=== PATIENT | female | born 1940 | race Caucasian/White ===

== ENCOUNTER → 2016-10-13 | Outpatient (CLI) | payer MEDICARE, BC ==
[2014-08-29 06:41] VITALS: BP 110/50
[~2016-10-13] MED LIST: CETIRIZINE10 MG PO; CHILDREN'S ASPI81 M1 PO; CYMBALTA60 M1 PO; LAMISIL TP; LEVOTHROID0.1 MG; LISINOPRIL1 POW; LISINOPRIL10 MG; LISINOPRIL10 MG PO; NEURONTIN300 MG PO; NEXIUM2.5 MG/Pac; NEXIUM40 MG; NORCO 325 MG-51 TAB PO; PRAVASTATIN20 MG PO; TOPROL XL 25MG25 MG PO; ZESTRIL 5MG5 MG PO
== END ==
LOC: LAB 09:27
DX: E78.2 Mixed hyperlipidemia (principal)

== ENCOUNTER → 2017-03-22 | Outpatient (CLI) | payer MEDICARE, BC ==
[2014-08-29 06:41] VITALS: BP 110/50
[2017-03-22 09:28] LABS: ALBUMIN 3.6 g/dL (3.5-5.0); BUN/CREATININE RATIO 16.7 (6.0-26.0); TOTAL BILIRUBIN 0.6 mg/dL (0.2-1.3); TOTAL PROTEIN 6.9 g/dL (6.3-8.2)
== END ==
LOC: LAB 09:03
PROVIDERS: Family Medicine
DX: E78.2 Mixed hyperlipidemia (principal); E03.8 Other specified hypothyroidism

== ENCOUNTER → 2017-09-23 | Outpatient (CLI) | payer MEDICARE, BC ==
[2014-08-29 06:41] VITALS: BP 110/50
[2017-09-23 12:37] LABS: HEMATOCRIT 42.6 % (37.0-47.0); HEMOGLOBIN 13.7 g/dL (12.5-16.0); MEAN PLATELET VOLUME 9.2 fl (7.4-10.4); RED BLOOD COUNT 4.52 M/mm3 (4.10-5.30); RED CELL DISTRIBUTION WIDTH 13.9 % (11.5-14.5); WHITE BLOOD COUNT 6.6 K/mm3 (4.8-10.8)
[2017-09-23 14:06] LABS: PARTIAL THROMBOPLASTIN TIME 25.3 SECONDS (21.0-32.0); PROTHROMBIN TIME 9.8 SECONDS (9.0-12.0)
== END ==
LOC: LAB 11:55
PROVIDERS: Family Medicine
DX: M19.071 Primary osteoarthritis, right ankle and foot (principal); M79.89 Other specified soft tissue disorders; R23.3 Spontaneous ecchymoses; G14 Postpolio syndrome

== ENCOUNTER → 2017-10-06 | Outpatient (CLI) | payer MEDICARE, BC ==
[2014-08-29 06:41] VITALS: BP 110/50
== END ==
LOC: RAD 08:27
DX: M21.6X1 Other acquired deformities of right foot (principal); M21.961 Unspecified acquired deformity of right lower leg; M89.8X7 Other specified disorders of bone, ankle and foot

== ENCOUNTER → 2018-03-02 | Outpatient (CLI) | payer MEDICARE, BC ==
[2014-08-29 06:41] VITALS: BP 110/50
[2018-03-02 12:06] LABS: CALCIUM 9.3 mg/dL (8.4-10.2); POTASSIUM 4.1 mmol/L (3.6-5.0); TOTAL BILIRUBIN 0.6 mg/dL (0.2-1.3); TOTAL PROTEIN 6.8 g/dL (6.3-8.2)
== END ==
LOC: LAB 11:31
PROVIDERS: Family Medicine
DX: E03.9 Hypothyroidism, unspecified (principal); I10 Essential (primary) hypertension; E78.2 Mixed hyperlipidemia

== ENCOUNTER → 2018-03-09 | Outpatient (CLI) | payer MEDICARE, BC ==
[2014-08-29 06:41] VITALS: BP 110/50
== END ==
LOC: LAB 14:07
DX: N39.0 Urinary tract infection, site not specified (principal); R30.0 Dysuria

== ENCOUNTER → 2018-04-27 | Outpatient (CLI) | payer MEDICARE, BC ==
[~2018-04-27] VITALS: Ht 160 cm; Wt 104.7 kg
[~2018-04-27] MED LIST changes: +ALBUTEROL2.5 MG/3 M IH; +GABAPENTIN TAB600 MG PO; +OMEPRAZOLE40 MG PO; +PRAVACHOL 40MG40 MG PO; +SINGULAIR PO
[2018-04-27 11:27] LABS: HEMATOCRIT 39.4 % (37.0-47.0); HEMOGLOBIN 12.5 g/dL (12.5-16.0); MEAN PLATELET VOLUME 9.8 fl (7.4-10.4); RED BLOOD COUNT 4.08 M/mm3 (4.10-5.30); RED CELL DISTRIBUTION WIDTH 14.4 % (11.5-14.5); WHITE BLOOD COUNT 8.3 K/mm3 (4.8-10.8)
[2018-04-27 11:28] VITALS: BP 126/69
[2018-04-27 11:41] LABS: CALCIUM 8.8 mg/dL (8.4-10.2); POTASSIUM 4.6 mmol/L (3.6-5.0)
[2018-04-27 12:00] VITALS: BP 134/78
[2018-04-27 12:15] VITALS: BP 154/73; BP 156/71
[2018-04-27 12:30] VITALS: BP 149/71
== END ==
LOC: AMSURD 11:01
PROVIDERS: Family Medicine
DX: J84.9 Interstitial pulmonary disease, unspecified (principal); R00.1 Bradycardia, unspecified; R06.00 Dyspnea, unspecified; J06.9 Acute upper respiratory infection, unspecified; R05 Cough; I10 Essential (primary) hypertension; E87.8 Other disorders of electrolyte and fluid balance, not elsewhere classified; Z98.890 Other specified postprocedural states; Z95.1 Presence of aortocoronary bypass graft

== ENCOUNTER → 2018-09-12 | Outpatient (CLI) | payer MEDICARE, BC ==
[2018-04-27 12:30] VITALS: BP 149/71
== END ==
LOC: RAD 09:57
DX: M19.019 Primary osteoarthritis, unspecified shoulder (principal); M54.2 Cervicalgia; G89.29 Other chronic pain; M25.562 Pain in left knee

== ENCOUNTER → 2019-05-13 | Outpatient (CLI) | payer MEDICARE, BC ==
[2018-04-27 12:30] VITALS: BP 149/71
== END ==
LOC: LAB 16:40
DX: N39.0 Urinary tract infection, site not specified (principal)

== ENCOUNTER → 2019-06-27 | Outpatient (CLI) | payer MEDICARE, BC ==
[2018-04-27 12:30] VITALS: BP 149/71
[2019-06-27 09:38] LABS: POTASSIUM 4.3 mmol/L (3.5-5.1)
[2019-06-27 09:39] LABS: CALCIUM 8.9 mg/dL (8.3-10.5)
[2019-06-27 09:42] LABS: TOTAL BILIRUBIN 0.4 mg/dL (0.2-1.2)
== END ==
LOC: LAB 09:00
PROVIDERS: Family Medicine
DX: I10 Essential (primary) hypertension (principal); E03.9 Hypothyroidism, unspecified; E78.2 Mixed hyperlipidemia

== ENCOUNTER → 2019-11-08 | Outpatient (CLI) | payer MEDICARE, BC ==
[2018-04-27 12:30] VITALS: BP 149/71
== END ==
LOC: RAD 08:30
DX: M19.012 Primary osteoarthritis, left shoulder (principal)

== ENCOUNTER → 2020-07-25 | Outpatient (CLI) | payer MEDICARE, BC ==
[2018-04-27 12:30] VITALS: BP 149/71
[2020-07-25 10:53] LABS: POTASSIUM 4.5 mmol/L (3.5-5.1)
[2020-07-25 10:54] LABS: ALBUMIN 3.9 g/dL (3.4-4.8)
[2020-07-25 10:55] LABS: CALCIUM 9.3 mg/dL (8.3-10.5)
[2020-07-25 10:58] LABS: TOTAL BILIRUBIN 0.4 mg/dL (0.2-1.2)
== END ==
LOC: LAB 10:08
PROVIDERS: Family Medicine
DX: I10 Essential (primary) hypertension (principal); E03.9 Hypothyroidism, unspecified; E78.2 Mixed hyperlipidemia; M85.80 Other specified disorders of bone density and structure, unspecified site

== ENCOUNTER → 2020-07-25 | Outpatient (CLI) | payer MEDICARE, BC ==
[2018-04-27 12:30] VITALS: BP 149/71
== END ==
LOC: MAMMO 10:00
DX: Z12.31 Encounter for screening mammogram for malignant neoplasm of breast (principal); Z95.0 Presence of cardiac pacemaker

== ENCOUNTER → 2020-07-30 | Outpatient (CLI) | payer MEDICARE, BC ==
[2018-04-27 12:30] VITALS: BP 149/71
== END ==
LOC: LAB 09:12
DX: E03.9 Hypothyroidism, unspecified (principal); M85.80 Other specified disorders of bone density and structure, unspecified site; I10 Essential (primary) hypertension; E78.2 Mixed hyperlipidemia

== ENCOUNTER → 2020-08-28 | Outpatient (CLI) | payer MEDICARE, BC ==
[2018-04-27 12:30] VITALS: BP 149/71
== END ==
LOC: RAD 08:30
DX: M19.012 Primary osteoarthritis, left shoulder (principal)

== ENCOUNTER → 2020-12-23 | Outpatient (CLI) | payer MEDICARE, BC | LOC: RAD 14:54 | DX: J98.01 Acute bronchospasm (principal); J30.9 Allergic rhinitis, unspecified ==

== ENCOUNTER → 2021-07-28 | Outpatient (CLI) | payer MEDICARE, BC | LOC: LAB 12:27 | DX: N39.0 Urinary tract infection, site not specified (principal); L20.9 Atopic dermatitis, unspecified ==

== ENCOUNTER → 2021-08-18 | Outpatient (CLI) | payer MEDICARE, BC ==
[2021-08-18 10:29] LABS: ALBUMIN 3.8 g/dL (3.4-4.8)
[2021-08-18 10:30] LABS: CALCIUM 10.1 mg/dL (8.3-10.5)
[2021-08-18 10:33] LABS: TOTAL BILIRUBIN 0.5 mg/dL (0.2-1.2)
== END ==
LOC: LAB 09:14
PROVIDERS: Family Medicine
DX: E78.2 Mixed hyperlipidemia (principal); I10 Essential (primary) hypertension; E55.9 Vitamin D deficiency, unspecified; E03.9 Hypothyroidism, unspecified

== ENCOUNTER → 2021-08-20 | Outpatient (CLI) | payer MEDICARE, BC ==
[2021-08-20 09:39] LABS: POTASSIUM 5.1 mmol/L (3.5-5.1)
[2021-08-20 09:40] LABS: CALCIUM 10.2 mg/dL (8.3-10.5)
== END ==
LOC: LAB 09:00
PROVIDERS: Family Medicine
DX: Z00.00 Encounter for general adult medical examination without abnormal findings (principal); H04.123 Dry eye syndrome of bilateral lacrimal glands; E03.9 Hypothyroidism, unspecified; F41.9 Anxiety disorder, unspecified; I10 Essential (primary) hypertension; J98.01 Acute bronchospasm; G14 Postpolio syndrome; E87.5 Hyperkalemia; E55.9 Vitamin D deficiency, unspecified; L20.9 Atopic dermatitis, unspecified; R32 Unspecified urinary incontinence; Z95.2 Presence of prosthetic heart valve

== ENCOUNTER → 2021-09-24 | Outpatient (CLI) | payer MEDICARE, BC | LOC: LAB 10:23 | DX: R73.02 Impaired glucose tolerance (oral) (principal) ==

== ENCOUNTER → 2021-12-10 | Outpatient (CLI) | payer MEDICARE, BC ==
[2021-12-10 10:59] LABS: URINE APPEARANCE CLOUDY; URINE BILIRUBIN NEGATIVE (NEGATIVE); URINE BLOOD TRACE (NEGATIVE); URINE COLOR YELLOW; URINE GLUCOSE NEGATIVE (NEGATIVE); URINE KETONE NEGATIVE (NEGATIVE); URINE LEUKOCYTE ESTERASE 2+ (NEGATIVE); URINE NITRATE NEGATIVE (NEGATIVE); URINE PROTEIN(semi-quant) NEGATIVE (NEGATIVE); URINE UROBILINOGEN NORMAL (NORMAL); URINE WBC >50 /hpf (0-3)
== END ==
LOC: LAB 10:19
PROVIDERS: Family Medicine
DX: N39.0 Urinary tract infection, site not specified (principal)

== ENCOUNTER 2022-07-26 12:42 | Emergency (ER) | payer MEDICARE, BC ==
[~2022-07-26] VITALS: Ht 160 cm; Wt 102.3 kg
[2022-07-26 13:43] LABS: HEMATOCRIT 44.3 % (37.0-47.0); MEAN CELL VOLUME 95 fl (78-100); MEAN CORPUSCULAR HEMOGLOBIN 32 pg (27-31); MEAN CORPUSCULAR HGB CONC 34 g/dL (33-37); PLATELET COUNT 81 K/mm3 (130-400); RED BLOOD COUNT 4.65 M/mm3 (4.10-5.30); RED CELL DISTRIBUTION WIDTH 12.7 % (11.5-14.5); WHITE BLOOD COUNT 6.8 K/mm3 (4.8-10.8)
[2022-07-26 13:52] LABS: ALBUMIN 3.7 g/dL (3.4-4.8); POTASSIUM 4.6 mmol/L (3.5-5.1); SODIUM 137 mmol/L (136-145)
[2022-07-26 13:53] LABS: CALCIUM 9.6 mg/dL (8.3-10.5)
[2022-07-26 13:55] LABS: GLUCOSE 124 mg/dL (65-105); TOTAL PROTEIN 7.3 g/dL (6.2-8.1)
[2022-07-26 13:56] LABS: CARBON DIOXIDE 22 mmol/L (23-31); TOTAL BILIRUBIN 1.9 mg/dL (0.2-1.2)
[2022-07-26 14:00] LABS: AST-SGOT 215 U/L (5-34)
[2022-07-26 14:01] LABS: ALT/SGPT 119 U/L (0-55)
[2022-07-26 14:06] LABS: URINE APPEARANCE CLEAR; URINE COLOR YELLOW
[2022-07-26 14:07] LABS: PH-URINE 6.5 (5.0 - 8.0); URINE BILIRUBIN 8 (NEGATIVE); URINE BLOOD 50 ery/uL (NEGATIVE); URINE GLUCOSE NEGATIVE (NEGATIVE); URINE KETONE NEGATIVE (NEGATIVE); URINE LEUKOCYTE ESTERASE 2+ (NEGATIVE); URINE NITRATE POSITIVE (NEGATIVE); URINE PROTEIN(semi-quant) 1+ (NEGATIVE); URINE UROBILINOGEN 1 mg/dL (NORMAL); URINE WBC 16-30 /hpf (0-3)
[2022-07-26 14:12] LABS: NEUTROPHILS 70 % (42-75)
[2022-07-26 14:13] LABS: BAND 23 % (0-10); LYMPHOCYTE 3 % (20-51); MONOCYTE 3 % (3-10)
[2022-07-26 14:31] LABS: LIPASE > 1200 U/L (8-78)
[2022-07-26] MEDS ORDERED: DULOXETINE60 MG PO (15:19)
[2022-07-26] MEDS ORDERED: VITAMIN D3125 MC4 PO (15:19)
[2022-07-26] MEDS ORDERED: PRILOSEC 20MG20 MG PO (15:20)
[2022-07-26] MEDS ORDERED: SINGULAIR 110 MG/TAB PO (15:22)
[2022-07-26 17:58] VITALS: BP 122/68
[2022-07-28] MEDS ORDERED: CEFDINIR300 MG PO (15:43)
== END 2022-07-26 17:58 | disposition other institution (70) ==
LOC: ED 12:42
PROVIDERS: Family Medicine
DX: K85.90 Acute pancreatitis without necrosis or infection, unspecified (principal); G14 Postpolio syndrome; N39.0 Urinary tract infection, site not specified; R77.8 Other specified abnormalities of plasma proteins; E66.9 Obesity, unspecified; Z68.39 Body mass index [BMI] 39.0-39.9, adult; Z91.040 Latex allergy status
CPT/HCPCS: C9113; J0696; J7030; Q9967

== ENCOUNTER → 2022-08-07 | Outpatient (CLI) | payer MEDICARE, BC ==
[~2022-08-07] VITALS: Ht 160 cm; Wt 94.0 kg
[~2022-08-07] MED LIST changes: +CEFDINIR300 MG PO; +DULOXETINE60 MG PO; +PRILOSEC 20MG20 MG PO; +SINGULAIR 110 MG/TAB PO; +VITAMIN D3125 MC4 PO
[2022-08-07 11:55] LABS: URINE WBC 0 /hpf (0-3)
[2022-08-07 12:00] LABS: BASO # 0.03 K/mm3 (0.02-0.10); EOS # 0.08 K/mm3 (0.04-0.40); EOS % 1.3 % (1.0-5.0); HEMATOCRIT 44.6 % (37.0-47.0); HEMOGLOBIN 14.4 g/dL (12.5-16.0); LYMPH# 1.89 K/mm3 (1.50-4.00); MEAN CELL VOLUME 96 fl (78-100); MEAN CORPUSCULAR HEMOGLOBIN 31 pg (27-31); MEAN CORPUSCULAR HGB CONC 32 g/dL (33-37); MEAN PLATELET VOLUME 8.8 fl (7.4-10.4); MONO # 0.41 K/mm3 (0.20-0.80); NEU # 3.58 K/mm3 (1.40-6.50); PLATELET COUNT 203 K/mm3 (130-400); RED BLOOD COUNT 4.63 M/mm3 (4.10-5.30); RED CELL DISTRIBUTION WIDTH 12.5 % (11.5-14.5)
[2022-08-07 12:19] VITALS: BP 146/72
[2022-08-07 12:25] LABS: URINE APPEARANCE CLEAR; URINE BILIRUBIN NEGATIVE (NEGATIVE); URINE BLOOD NEGATIVE (NEGATIVE); URINE COLOR YELLOW; URINE GLUCOSE NEGATIVE (NEGATIVE); URINE KETONE NEGATIVE (NEGATIVE); URINE LEUKOCYTE ESTERASE NEGATIVE (NEGATIVE); URINE NITRATE NEGATIVE (NEGATIVE); URINE PROTEIN(semi-quant) NEGATIVE (NEGATIVE); URINE UROBILINOGEN NORMAL (NORMAL)
== END ==
LOC: LAB 11:47
PROVIDERS: Family Medicine
DX: D69.6 Thrombocytopenia, unspecified (principal); K82.9 Disease of gallbladder, unspecified; N39.0 Urinary tract infection, site not specified; Z95.2 Presence of prosthetic heart valve

== ENCOUNTER → 2023-03-10 | Outpatient (CLI) | payer MEDICARE, BC ==
[2023-03-10 12:27] LABS: POTASSIUM 4.3 mmol/L (3.5-5.1)
[2023-03-10 12:28] LABS: CALCIUM 9.8 mg/dL (8.3-10.5)
== END ==
LOC: LAB 11:57
PROVIDERS: Family Medicine
DX: E03.9 Hypothyroidism, unspecified (principal); I10 Essential (primary) hypertension; R73.03 Prediabetes; E78.2 Mixed hyperlipidemia; E55.9 Vitamin D deficiency, unspecified; K21.9 Gastro-esophageal reflux disease without esophagitis; M17.12 Unilateral primary osteoarthritis, left knee; G14 Postpolio syndrome; L20.9 Atopic dermatitis, unspecified

== ENCOUNTER → 2023-06-14 | Outpatient (CLI) | payer MEDICARE, BC ==
[2023-06-14 13:18] LABS: CALCIUM 10.1 mg/dL (8.3-10.5)
== END ==
LOC: LAB 12:51
PROVIDERS: Family Medicine
DX: E03.8 Other specified hypothyroidism (principal); I10 Essential (primary) hypertension; E78.2 Mixed hyperlipidemia; E55.9 Vitamin D deficiency, unspecified

== ENCOUNTER → 2023-10-14 | Outpatient (CLI) | payer MEDICARE, BC | LOC: LAB 12:30 | DX: E78.2 Mixed hyperlipidemia (principal) ==

== ENCOUNTER → 2024-06-19 | Outpatient (CLI) | payer MEDICARE, BC | LOC: LAB 10:19 | DX: E03.8 Other specified hypothyroidism (principal) ==

== ENCOUNTER → 2024-07-03 | Outpatient (CLI) | payer MEDICARE, BC ==
[~2024-07-03] MED LIST changes: +Iohexol 300 - 100 ML VIAL IV ONE; +NS 100 ML IV SCH
[2024-07-03 11:51] LABS: BASO # 0.02 K/mm3 (0.02-0.10); EOS # 0.11 K/mm3 (0.04-0.40); EOS % 2.2 % (1.0-5.0); HEMATOCRIT 44.7 % (37.0-47.0); HEMOGLOBIN 14.1 g/dL (12.5-16.0); LYMPH# 1.75 K/mm3 (1.50-4.00); MEAN CELL VOLUME 98 fl (78-100); MEAN CORPUSCULAR HEMOGLOBIN 31 pg (27-31); MEAN CORPUSCULAR HGB CONC 32 g/dL (33-37); MEAN PLATELET VOLUME 8.9 fl (7.4-10.4); MONO # 0.45 K/mm3 (0.20-0.80); NEU # 2.66 K/mm3 (1.40-6.50); PLATELET COUNT 134 K/mm3 (130-400); RED BLOOD COUNT 4.58 M/mm3 (4.10-5.30); RED CELL DISTRIBUTION WIDTH 12.7 % (11.5-14.5)
[2024-07-03 12:04] LABS: CALCIUM 10.2 mg/dL (8.3-10.5)
[2024-07-03 12:05] LABS: TOTAL PROTEIN 7.7 g/dL (6.2-8.1)
[2024-07-03 12:07] LABS: TOTAL BILIRUBIN 0.6 mg/dL (0.2-1.2)
== END ==
LOC: LAB 11:32
PROVIDERS: Family Medicine
DX: R10.11 Right upper quadrant pain (principal)
CPT/HCPCS: Q9967

== ENCOUNTER → 2024-07-04 | Outpatient (CLI) | payer MEDICARE, BC ==
[~2024-07-04] MED LIST changes: -Iohexol 300 - 100 ML VIAL IV ONE; -NS 100 ML IV SCH
[2024-07-04 10:09] LABS: ALBUMIN 3.8 g/dL (3.4-4.8)
[2024-07-04 10:11] LABS: CALCIUM 9.7 mg/dL (8.3-10.5)
[2024-07-04 10:12] LABS: TOTAL PROTEIN 7.2 g/dL (6.2-8.1)
[2024-07-04 10:14] LABS: TOTAL BILIRUBIN 0.5 mg/dL (0.2-1.2)
== END ==
LOC: LAB 09:43
PROVIDERS: Family Medicine
DX: R10.11 Right upper quadrant pain (principal)